=== PATIENT | male | born 1960 | race Caucasian/White ===

== ENCOUNTER 2017-02-18 13:21 | Observation (INO) | payer OTHER ==
--- NOTE | 2017-02-18 14:18 | PDOC ---
Attending Attestation - Resident Resident Name: Seble Marxica - ED Attending Attestation I have performed the following: I have examined & evaluated the patient, The case was reviewed & discussed with the resident, I agree w/resident's findings & plan, Exceptions are as noted - HPI HPI: 02/18/17 14:27 57y M no significant pmhx preseents with lighteadedness. The pt state that he was working and dong some heavy lifting when he just started efeling very week, lightheaded/dizzy, palpitations- denies any cp, sob, diaphoresis, n/v. The sypmtoms lasted for ~10 min and then recurred. The pt currently feels well and otherwise asymptmoatic. on exm pt appears well, in no distress with essentially normal exam initial ekg showd some ST depressions, ?minimally will r/o anemia, metaoblic derangement, on monitor will r/o acs repeat ekg is unchanged 02/18/17 16:27 labs reviewed and are neg pt asymptmatic case dw cardiology - requets observation for further risk stratgification in lgiht of ekg findings 02/18/17 19:54 [t was originally admitted for inpatient admission, howver will downgrade to observation at restquest of dr. Nielson. Requests admission under hospitalist service. - Physicial Exam PE: 02/18/17 19:55 see above - Medical Decision Making 02/18/17 19:55 see above Heart Score/ECG Review - ECG Impressions Comment:: 02/18/17 15:10 Twelve-lead EKG was performed and reviewed by me. ekg orerformed at 13:35 There is normal sinus rhythm with a 103 abnormal r wave progression subtle ST depressions in lateral leads (v4-v6 - vs poor baseine) subtle st elevations in V1, avr, no old ekg for comparison q wave in III st flattening in III ekg orerformed at 14:21 There is normal sinus rhythm with a 96 abnormal r wave progression std in lateral leads improved subtle st elevations in V1, avr
--- NOTE | 2017-02-18 14:22 | PDOC ---
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 Patient states he sat down and the symptoms resolved however after climbing stairs the symptoms returned. Patient denies any chest pain, shortness of breath, diaphoresis, nausea or vomiting. Patient denies any prior cardiac evaluation. Surgical: none NKDA Social: denies cigarettes, 1-2 alcoholic drinks weekly, denies recreational drugs PMD: Dr. Christopher <Yovana Marx - Last Filed: 02/18/17 17:55> - General Chief Complaint: Palpitations Stated Complaint: LIGHTHEADED, RAPID HEARTBEAT Time Seen by Provider: 02/18/17 13:56 Past History <Elmer Flores - Last Filed: 02/18/17 16:56> - Past Medical History Thyroid Disease: No - Suicide/Smoking/Psychosocial Hx Smoking History: Never smoked Have you smoked in the past 12 months: No Information on smoking cessation initiated: No Hx Alcohol Use: No Drug/Substance Use Hx: No Substance Use Type: None <Yovana Marx - Last Filed: 02/18/17 17:55> - Past Medical History Allergies/Adverse Reactions: Allergies Allergy/AdvReac Type Severity Reaction Status Date / Time red dye Allergy Intermediate Verified 02/18/17 13:53 Review of Systems - Review of Systems Constitutional: No: Chills, Fever Respiratory: No: Shortness of Breath Cardiac (ROS): Yes: Lightheadedness ABD/GI: No: Constipated, Diarrhea, Nausea, Vomiting All Other Systems: Reviewed and Negative <Yovana Marx - Last Filed: 02/18/17 17:55> *Physical Exam - Vital Signs Last Vital Signs Temp Pulse Resp BP Pulse Ox 98.2 F 92 H 18 155/95 98 02/18/17 16:14 02/18/17 16:14 02/18/17 16:14 02/18/17 16:14 02/18/17 16:14 <Elmer Flores - Last Filed: 02/18/17 16:56> - Vital Signs Last Vital Signs Temp Pulse Resp BP Pulse Ox 98.2 F 102 H 18 177/94 100 02/18/17 13:25 02/18/17 13:25 02/18/17 13:25 02/18/17 13:25 02/18/17 13:25 - Physical Exam General Appearance: Yes: Nourished, Obese HEENT: positive: TMs Normal. negative: TM Bulging, TM Erythema Respiratory/Chest: positive: Lungs Clear Cardiovascular: positive: S1, S2 Gastrointestinal/Abdominal: positive: Soft, Protuberent Integumentary: positive: Normal Color, Dry Neurologic: positive: senior net engineer II-XII NML intact, Fully Oriented, Alert <Yovana Marx - Last Filed: 02/18/17 17:55> ED Treatment Course - LABORATORY CBC & Chemistry Diagram: 02/18/17 14:23 02/18/17 14:23 - ADDITIONAL ORDERS Additional order review: Laboratory Results 02/18/17 14:23 Sodium 134 L Potassium 4.4 Chloride 100 Carbon Dioxide 25 Anion Gap 9 BUN 12 Creatinine 0.8 Creat Clearance w eGFR > 60 Random Glucose 156 H D Calcium 8.6 Magnesium 2.5 H Total Bilirubin 0.4 AST 63 H D ALT 95 H D Alkaline Phosphatase 74 Creatine Kinase 298 Creatine Kinase Index 0.8 CK-MB (CK-2) 2.539 Troponin I < 0.02 Total Protein 7.4 Albumin 3.9 02/18/17 14:23 RBC 5.04 MCV 89.8 MCHC 34.8 RDW 12.5 MPV 8.0 Neutrophils % 77.1 Lymphocytes % 12.6 D Monocytes % 8.5 Eosinophils % 0.4 Basophils % 1.4 - Medications Given in the ED: ED Medications Discontinued Medications Generic Name Dose Route Start Last Admin Trade Name Freq PRN Reason Stop Dose Admin Aspirin 324 mg 02/18/17 15:05 02/18/17 15:16 Asa - PO 02/18/17 15:06 324 mg ONCE ONE Administration <Elmer Flores - Last Filed: 02/18/17 16:56> - LABORATORY CBC & Chemistry Diagram: 02/18/17 14:23 02/18/17 14:23 - RADIOLOGY Radiology Studies Ordered: Category Date Time Status CHEST PA & LAT [RAD] Stat Radiology 02/18/17 14:07 Ordered <Yovana Marx - Last Filed: 02/18/17 17:55> Medical Decision Making - Medical Decision Making 02/18/17 14:39 Patient is a 57 y.o. male who presents with lightheadedness x2 following exertion. As lightheadedness might represent anginal equivalent initial DDx includes r/o ACS vs. Angina vs. Dehydration. PLAN: 1. Troponin/EKG/CK 2. CBC, CMP Mg 02/18/17 15:31 EKG shows NSR (HR 103) subtle ST depressions in lateral leads (V5,V6) and subtle ST elevations in V1, aVR, solo Q wave in Lead III; repeat EKG shows NSR @ 96 bpm, and continued ST elevations in V1, aVR Clinical suspicion for ACS is moderate, patient's Heart Score 1-2, however as lightheadedness on exertion may represent anginal equivalent, patient admitted for cardiac stress testing; Dr. George (cardiology, dairy consultant) to evaluate patient. 02/18/17 15:38 Troponin (-) x1, CK pending; patient's PCP, Dr. Washington (Dr. Nielson) contacted - will contact with CK-MB 02/18/17 15:[address] Nielson requests CT head w/o contrast as patient c/o of lightheadedness 02/18/17 17:[address] Nielson, confirmed patient was admitted as inpatient. <Yovana Marx - Last Filed: 02/18/17 17:55> *DC/Admit/Observation/Transfer - Discharge Dispostion Admit: Yes <Elmer Flores - Last Filed: 02/18/17 16:56> <Yovana Marx - Last Filed: 02/18/17 17:55> Diagnosis at time of Disposition: Lightheaded, EKG abnormalities - Referrals Referrals: Gisela Christopher MD [Primary Care Provider] -
[2017-02-18 14:32] LABS: BASOPHIL 1.4 % (0-2.0); EOSINOPHIL 0.4 % (0-4.5); MCH 31.3 pg (25.7-33.7); MCHC 34.8 g/dl (32.0-35.9); MEAN CELL VOLUME 89.8 fl (80-96); NEUTROPHILS 77.1 % (42.8-82.8); PLATELET COUNT 249 K/MM3 (134-434); RDW 12.5 % (11.9-15.9); WHITE BLOOD COUNT 12.4 K/mm3 (4.0-10.0)
[2017-02-18 14:58] LABS: ALBUMIN 3.9 g/dl (3.4-5.0); ALK PHOS 74 U/L (45-117); ANION GAP 9 (8-16); BILIRUBIN,TOTAL 0.4 mg/dL (0.2-1.0); CALCIUM 8.6 mg/dL (8.5-10.1); CO2 25 mmol/L (21-32); CREATININE 0.8 mg/dL (0.7-1.3); GLUCOSE,RANDOM 156 mg/dL (74-106); SGPT/ALT 95 U/L (12-78); TOT PROT 7.4 g/dl (6.4-8.2)
[2017-02-18 15:00] LABS: TROPONIN I < 0.02 ng/ml (0.00-0.05)
[2017-02-18 15:02] LABS: MAGNESIUM 2.5 mg/dL (1.8-2.4); SGOT/AST 63 U/L (15-37)
[2017-02-18] MEDS ORDERED: ASPIRIN 81 MG CHEWABLE TABLETS PO ONE (15:05)
[2017-02-18] MEDS ORDERED: ASPIRIN 81 MG CHEWABLE TABLETS ONE (15:11)
[2017-02-18 15:44] LABS: CPK 298 IU/L (39-308)
--- NOTE | 2017-02-18 17:41 | HP ---
Admitting History and Physical - Primary Care Physician PCP: Dr jason Washington(Dr Nielson) - Admission History of Present Illness: 57y M no significant pmhx preseents with lighteadedness. The pt state that he was working and dong some heavy lifting when he just started efeling very week, lightheaded/dizzy, palpitations- denies any cp, sob, diaphoresis, n/v. The sypmtoms lasted for ~10 min and then recurred. The pt currently feels well and otherwise asymptmoatic. - Smoking History Smoking history: Never smoked Have you smoked in the past 12 months: No - Alcohol/Substance Use Hx Alcohol Use: No Home Medications - Allergies Allergies/Adverse Reactions: Allergies Allergy/AdvReac Type Severity Reaction Status Date / Time red dye Allergy Intermediate Verified 02/18/17 13:53 Physical Examination Vital Signs: Vital Signs Temperature 98.2 F 02/18/17 16:14 Pulse Rate 92 H 02/18/17 16:14 Respiratory Rate 18 02/18/17 16:14 Blood Pressure 155/95 02/18/17 16:14 O2 Sat by Pulse Oximetry (%) 98 02/18/17 16:14 Labs: CBC, BMP 02/18/17 14:23 02/18/17 14:23
--- NOTE | 2017-02-18 18:53 | PDOC ---
ED Treatment Course - LABORATORY CBC & Chemistry Diagram: 02/18/17 14:23 02/18/17 14:23 - ADDITIONAL ORDERS Additional order review: Laboratory Results 02/18/17 14:23 Sodium 134 L Potassium 4.4 Chloride 100 Carbon Dioxide 25 Anion Gap 9 BUN 12 Creatinine 0.8 Creat Clearance w eGFR > 60 Random Glucose 156 H D Calcium 8.6 Magnesium 2.5 H Total Bilirubin 0.4 AST 63 H D ALT 95 H D Alkaline Phosphatase 74 Creatine Kinase 298 Creatine Kinase Index 0.8 CK-MB (CK-2) 2.539 Troponin I < 0.02 Total Protein 7.4 Albumin 3.9 02/18/17 14:23 RBC 5.04 MCV 89.8 MCHC 34.8 RDW 12.5 MPV 8.0 Neutrophils % 77.1 Lymphocytes % 12.6 D Monocytes % 8.5 Eosinophils % 0.4 Basophils % 1.4 - Medications Given in the ED: ED Medications Discontinued Medications Generic Name Dose Route Start Last Admin Trade Name Freq PRN Reason Stop Dose Admin Aspirin 324 mg 02/18/17 15:05 02/18/17 15:16 Asa - PO 02/18/17 15:06 324 mg ONCE ONE Administration Medical Decision Making - Medical Decision Making 02/18/17 20:08 Pt was originally admitted for inpatient admission, howver will downgrade to observation at [facility] of dr. Nielson. Requests admission under hospitalist service. *DC/Admit/Observation/Transfer Diagnosis at time of Disposition: Lightheaded, EKG abnormalities - Discharge Dispostion Condition at time of disposition: Stable Admit: Yes
--- NOTE | 2017-02-18 20:44 | PN ---
Teaching Attending Note Name of Resident: Patsy Perales ATTENDING PHYSICIAN STATEMENT I saw and evaluated the patient. I reviewed the resident's note and discussed the case with the resident. I agree with the resident's findings and plan as documented. SUBJECTIVE: 57 M with pmhx of MS who presents with decreased hearing, dizziness and lightheadedness. No chest pain, pressure or shortness of breath. States he was picking up air conditioners when this happened. He went to sit down, but when he got up again it happend. He denies any palpitations OBJECTIVE: Physical: VS: Vital Signs Period Temp Pulse Resp BP Sys/Valdez Pulse Ox Last 24 Hr 98.2 F-98.4 F 85-102 18-18 155-177/78-95 96-100 GEN: NAD, resting in bed HEENT: NCAT, PERRL, Throat without erythema or exudates CARD: RRR S1, S2 RESP: CTAB ABD: BSx4, ntd to palpation EXT: - C/C/E NEURO: CN II-XII intact CBCD WBC 12.4 K/mm3 (4.0-10.0) H D 02/18/17 14:23 RBC 5.04 M/mm3 (4.00-5.60) 02/18/17 14:23 Hgb 15.8 GM/dL (11.7-16.9) 02/18/17 14:23 Hct 45.2 % (35.4-49) 02/18/17 14:23 MCV 89.8 fl (80-96) 02/18/17 14:23 MCHC 34.8 g/dl (32.0-35.9) 02/18/17 14:23 RDW 12.5 % (11.9-15.9) 02/18/17 14:23 Plt Count 249 K/MM3 (134-434) 02/18/17 14:23 MPV 8.0 fl (7.5-11.1) 02/18/17 14:23 CMP Sodium 134 mmol/L (136-145) L 02/18/17 14:23 Potassium 4.4 mmol/L (3.5-5.1) 02/18/17 14:23 Chloride 100 mmol/L (98-107) 02/18/17 14:23 Carbon Dioxide 25 mmol/L (21-32) 02/18/17 14:23 Anion Gap 9 (8-16) 02/18/17 14:23 BUN 12 mg/dL (7-18) 02/18/17 14:23 Creatinine 0.8 mg/dL (0.7-1.3) 02/18/17 14:23 Creat Clearance w eGFR > 60 (>60) 02/18/17 14:23 Random Glucose 156 mg/dL (74-106) H D 02/18/17 14:23 Calcium 8.6 mg/dL (8.5-10.1) 02/18/17 14:23 Total Bilirubin 0.4 mg/dL (0.2-1.0) 02/18/17 14:23 AST 63 U/L (15-37) H D 02/18/17 14:23 ALT 95 U/L (12-78) H D 02/18/17 14:23 Alkaline Phosphatase 74 U/L (45-117) 02/18/17 14:23 Total Protein 7.4 g/dl (6.4-8.2) 02/18/17 14:23 Albumin 3.9 g/dl (3.4-5.0) 02/18/17 14:23 CARDIAC ENZYMES Creatine Kinase 298 IU/L (39-308) 02/18/17 14:23 Troponin I < 0.02 ng/ml (0.00-0.05) 02/18/17 14:23 EKG: NSR 96, Q waves septal leads CXR: No acute process CT HEAD- No acute intercranial hemmorage, mass effect, or midlien shift. Non- patchy hypoattenuation within cerebral white matter, may be related to demylinating disease such as MS. Focal encphalomalacia and gliosis in superior, posterior, left cerebellum which may be related to chronic infarction. Post-sx. changes in r. sinonasal cavity with chronic osteitits of the right maxillary sinus, which may represent mucosal thickening and post-sx. tissue ASSESSMENT AND PLAN: 57 M with pmhx of MS who presents with lightheadedness, dizziness and palpitations being admitted for Pre-Syncope 1.) Pre-Syncope/Decreased hearing - Decreased hearing now resolved, oupt. auditory eval - CT HEAD reviewed - MRI brain, can be done outpatient, to fu on MS lesions - Orthostatic VS - IVF gentle - TSH, FT4 - Trend EKG/Trop - Echo 2.) Transaminitis - Check Hepatitis panel - Trend/Fu outpt. 3.) Leukocytosis - Pt.s HR in Normal range - Check UA, If + Ucx - CXR- Negative 4.) Dvt Ppx - Low Risk - Ambulate/SCDs Place in Obs-Tele
--- NOTE | 2017-02-18 20:56 | HP ---
CHIEF COMPLAINT: "My heart was racing" PCP: Dr Christopher HISTORY OF PRESENT ILLNESS: This ia a 57yo previously healthy M with PMH of mild MS and HTn (not on meds), who presented due to new onset of lighteadedness, palpitations, heat flush and muffled sound in ears that occurred while bearing down/ lifting heavy object. Symptoms lasted <10 min and resolved spontaneously. This has never happened before. He denies consuming energy drinks, stimulants or drugs. He drink 2 cups of coffee/day. He denies cp, sob, cough, LE edema, weight change, heat/ cold intoolerance, n/v. Patient is asymptomatic in ED, afebrile and hemodnamically stable, however was found to have nonspecific ST changes on EKG. EKG: sinus 103 abnormal r wave progression subtle ST depressions in lateral leads v4-v6 subtle st elevations in V1, avr, q wave in III st flattening in III no old ekg for comparison ER course was notable for: (1)labs (2)cxr. ekg (3)asa Recent Travel: denies PAST MEDICAL HISTORY: mild ms PAST SURGICAL HISTORY: Social History: Smoking: smoked for 2 yrs, quit Alcohol: 4 beers/day Drugs: denies Family History: father and mother PR/CHF in the 60's. No thyroid disease Allergies red dye Allergy (Intermediate, Verified 02/18/17 13:53) red dye in cough medicine; numb lips, tingling, hives, urticaria. HOME MEDICATIONS: REVIEW OF SYSTEMS CONSTITUTIONAL: Absent: fever, chills, loss of appetite, weight change HEENT: Absent: rhinorrhea, nasal congestion, throat pain, throat swelling CARDIOVASCULAR: Absent: chest pain, syncope, irregular heart rate, lightheadedness, peripheral edema RESPIRATORY: Absent: cough, shortness of breath, dyspnea with exertion, orthopnea, wheezing, stridor, hemoptysis GASTROINTESTINAL: Absent: abdominal pain, abdominal distension, nausea, vomiting, diarrhea, constipation, melena, hematochezia GENITOURINARY: Absent: dysuria MUSCULOSKELETAL: Absent: back pain, neck pain SKIN: Absent: rash, itching, pallor HEMATOLOGIC/IMMUNOLOGIC: Absent: easy bleeding, easy bruising ENDOCRINE: Absent: unexplained weight gain, unexplained weight loss, heat intolerance, cold intolerance NEUROLOGIC: Absent: headache, focal weakness or paresthesias PSYCHIATRIC: Absent: anxiety, depression PHYSICAL EXAMINATION Vital Signs - 24 hr 02/18/17 20:17 Temperature 98.4 F Pulse Rate [ 85 Apical] Respiratory 18 Rate Blood Pressure 160/78 [Right Arm] O2 Sat by Pulse 96 Oximetry (%) GENERAL: Awake, alert, and fully oriented, in no acute distress. HEAD: Normal with no signs of trauma. EYES: Pupils equal, round and reactive to light, extraocular movements intact, sclera anicteric, conjunctiva clear. No lid lag. EARS, NOSE, THROAT: Moist mucous membranes. NECK: Normal range of motion, supple without JVD, or masses, full neck, hard to assess for thyromegaly but no lumps or adenopathy felt LUNGS: Breath sounds equal, clear to auscultation bilaterally, mild bibasilar crackles HEART: Regular rate and rhythm, normal S1 and S2 without murmur, rub or gallop. ABDOMEN: Soft, nontender, not distended, normoactive bowel sounds, no guarding, no rebound, no masses. MUSCULOSKELETAL: No CVA tenderness. UPPER EXTREMITIES: 2+ pulses, warm, well-perfused. No cyanosis. No clubbing. No peripheral edema. LOWER EXTREMITIES: 2+ pulses, warm, well-perfused. No calf tenderness. No peripheral edema. NEUROLOGICAL: Cranial nerves II-XII grossly intact. Normal speech. PSYCHIATRIC: Cooperative. Good eye contact. Appropriate mood and affect. SKIN: Warm, dry ASSESSMENT/PLAN: This ia a 57yo previously healthy M with PMH of mild MS and HTn (not on meds), who presented due to new onset of lighteadedness, palpitations, heat flush and muffled sound in ears that occurred while bearing down/ lifting heavy object. Presyncopal episode -likely vasovagal; check orthostaqtic vitals -IV hydration -TFT's -trop negative x1; trend one more -CXR clear -EKG abdormal, nospecific T changes in setting of strong family history of PR, CHF; tele monitoring -TTE -cardio consult -lipid panel -a1c HTN -not on meds -trend BP and treat as needed Mild transaminitis insetting of obesity -likely fatty liver vs EtOH abuse -consider outpatient evaluation with US, counseling on Etoh quitting, weight loss. MS -stable, not on meds -CT head appreciated FEN IV hydration lytes stable; mag goal 2, k goal 4 low NA diet early ambulation, diet Dispo: obs tele Problem List - Problem (1) EKG abnormalities Code(s): R94.31 - ABNORMAL ELECTROCARDIOGRAM [ECG] [EKG] (2) Lightheaded Code(s): R42 - DIZZINESS AND GIDDINESS (3) Pre-syncope Code(s): R55 - SYNCOPE AND COLLAPSE (4) HTN (hypertension) Code(s): I10 - ESSENTIAL (PRIMARY) HYPERTENSION (5) Multiple sclerosis Code(s): G35 - MULTIPLE SCLEROSIS Visit type - Emergency Visit Emergency Visit: Yes ED Registration Date: 02/18/17 Care time: The patient presented to the Emergency Department on the above date and was hospitalized for further evaluation of their emergent condition. - New Patient This patient is new to me today: Yes Date on this admission: 02/18/17 - Critical Care Critical Care patient: No
--- NOTE | 2017-02-18 22:27 | HP ---
CHIEF COMPLAINT: Lightheadedness and reduced hearing bilaterally PCP: Dr Nielson HISTORY OF PRESENT ILLNESS: A 57yr M with PMHx of mild MS,HTN, osteoarthritis not compliant on medications, presenting with lightheadedness after removing air -conditioners, as a diana in the heat. Patient felt hot, was sweating and suddenly noticed gradual reduction in hearing of both ears that lasted briefly. There was no dizziness, no LOC, no loss of vision, no aura or seizures, or weakness of any part of his body. No associated headaches or vomiting, no neck stiffness or fevers. There was no tinnitus. Patient never had a similar experience in the past. He was witnessed throughout the event and his colleague asked him to sit down after he poured water over himself. He was further encouraged to go to [employer] (here at [facility] from the [facility] location). His blood pressure was noted to be high and he was tachycardic and so referred to ED. No SOB, no cough. No dysuria, but admits polypdypsia. No diarrhea or constipation, no change in color of stool, no hematochezia. ER course was notable for: (1) EKG- sinus 103, abnormal r wave progression, subtle ST depressions in lateral leads v4-v6, subtle st elevations in V1, avr, q wave in III,st flattening in III no old ekg for comparison (2) CT scan- No acute intracranial hemorrhage, no mass effect, Nonspecific hypoattenuation related to MD, Focal encephalomalacia and gliosis superior and posterior L cerebellum, maybe related to chronic infarction, post surgical changes in R sinonasal cavity with chronic osteitis of R maxillary sinus which may represent some combination of mucosal thickenings and postsurgical tissue (3)Trops, CK MB-negative 4) WBC-12.4 5) CXR- No acute disease 6) AST-63, ALT-95 7) BP-155/95 Recent Travel: PAST MEDICAL HISTORY: MS HTN Osteoarthritis of knees PAST SURGICAL HISTORY: Social History: Smoking; Quit over 20 years ago Alcohol:3-4 beers a day Drugs: Denies Family History: Allergies red dye Allergy (Intermediate, Verified 02/18/17 13:53) red dye in cough medicine; numb lips, tingling, hives, urticaria. HOME MEDICATIONS: Home Medications Medication Instructions Recorded NK [No Known Home Medication] 02/18/17 REVIEW OF SYSTEMS CONSTITUTIONAL: Absent: fever, chills, diaphoresis, generalized weakness, malaise, loss of appetite, weight change HEENT: Absent: rhinorrhea, nasal congestion, throat pain, throat swelling, difficulty swallowing, mouth swelling, ear discomfort+, eye pain, visual changes CARDIOVASCULAR: Absent: chest pain, syncope, palpitations+, irregular heart rate, lightheadedness, peripheral edema RESPIRATORY: Absent: cough, shortness of breath, dyspnea with exertion, orthopnea, wheezing, stridor, hemoptysis GASTROINTESTINAL: Absent: abdominal pain, abdominal distension, nausea, vomiting, diarrhea, constipation, melena, hematochezia GENITOURINARY: Absent: dysuria, frequency, urgency, hesitancy, hematuria, flank pain, genital pain MUSCULOSKELETAL: Absent: myalgia, arthralgia, joint swelling, back pain, neck pain SKIN: Absent: rash, itching, pallor HEMATOLOGIC/IMMUNOLOGIC: Absent: easy bleeding, easy bruising, lymphadenopathy, frequent infections ENDOCRINE: Absent: unexplained weight gain, unexplained weight loss, heat intolerance, cold intolerance NEUROLOGIC: Absent: headache, focal weakness or paresthesias, dizziness, unsteady gait, seizure, mental status changes, bladder or bowel incontinence PSYCHIATRIC: Absent: anxiety, depression, suicidal or homicidal ideation, hallucinations. PHYSICAL EXAMINATION Vital Signs - 24 hr 02/18/17 20:17 Temperature 98.4 F Pulse Rate [ 85 Apical] Respiratory 18 Rate Blood Pressure 160/78 [Right Arm] O2 Sat by Pulse 96 Oximetry (%) GENERAL: Obese gentleman, Awake, alert, and fully oriented, in no acute distress. HEAD: Normal with no signs of trauma. No facial droop. EYES: Pupils equal, round and reactive to light, extraocular movements intact, sclera anicteric, conjunctiva clear. No lid lag. EARS, NOSE, THROAT: No obvious ear discharge, no tenderness of ears. Ears normal , oropharynx clear without exudates. Moist mucous membranes. NECK: No neck stiffness, Normal range of motion, without lymphadenopathy, JVD, or masses. Thyroid gland hard to palpate. LUNGS: Breath sounds equal, clear to auscultation bilaterally. No wheezes, and no crackles. No accessory muscle use. HEART: Tachycardic, S1 and S2 , ABDOMEN: Obese, firm, nontender, normoactive bowel sounds, no guarding, no rebound, no masses. No hepatomegaly or splenomegaly. MUSCULOSKELETAL: Normal range of motion at all joints. No bony deformities or tenderness. No CVA tenderness. UPPER EXTREMITIES: 2+ pulses, warm, well-perfused. No cyanosis. No clubbing. No peripheral edema. LOWER EXTREMITIES: 2+ pulses, warm, well-perfused. No calf tenderness. No peripheral edema. NEUROLOGICAL: Normal touch sensation, bilaterally, normal tone and reflexes globally. Babinski, downward. No tongue deviation. Normal speech. PSYCHIATRIC: Cooperative. Good eye contact. Appropriate mood and affect. ASSESSMENT/PLAN: 57yr obese M with PMHx of mild MS,HTN, osteoarthritis not on medications, presenting with lightheadedness and transient loss of hearing #Lightheadedness/presyncope Likely vasovagal, since it was hot and related to change in position Could also be cardiogenic since patient was previously diagnosed as hypertensive and has not been on medications, and found to be tachycardiac TFTs Echo CKG Cardiac consult-Smith Cardiac monitoring orthostatic vitals ASA monitor BP CMP, Mg, Ph Lipid panel, Hgb A1c Trend Trops #High blood pressure Monitor #Transaminitis Could be due to CORTEZ, R/o Alcoholic hepatitis, history of chronic alcohol ingestion Trend LFTs Hepatitis panel Follow up with GI as an outpatient #Obesity Lipid panel HgbA1c Counselling on diet and exercise Follow up, likely start statins #Ms Hx and findings on CT scan To follow up with neurologist as an outpatient #Prophylaxis SCDs Early ambulation Low risk no need for heparin at this time No need for GI prophylaxis at this time #FEN Oral fluids Monitor electrolytes Low salt diet #Osteoarthritis Stable Monitor #Dispo Telemetry Visit type - Emergency Visit Emergency Visit: Yes ED Registration Date: 02/18/17 Care time: The patient presented to the Emergency Department on the above date and was hospitalized for further evaluation of their emergent condition. - New Patient This patient is new to me today: Yes Date on this admission: 02/18/17 - Critical Care Critical Care patient: No
--- NOTE | 2017-02-18 23:13 | CON.CARD ---
Consult Consult Specialty:: cardiology Reason for Consultation:: EKG abnormality; CAD risks - History of Present Illness History of Present Illness: 57y white man with hx obesity, sedentary lifestyle, family hx CAD presents with lightheadedness. The pt states that he was working (at [employer] [employer]) and doing some heavy lifting when he started feeling very week, lightheaded/dizzy, with palpitations- denies any cp, sob, diaphoresis, n/v. The symptoms lasted for ~10 min and then recurred. The pt currently feels well and is otherwise asymptomatic. on exm pt appears well, in no distress with essentially normal exam initial ekg showed mild ST elevation V1, with ST depressions in lead I, V5-6 minimally will r/o anemia, metaoblic derangement, on monitor will r/o acs repeat ekg is unchanged - History Source History Provided By: Patient, Medical Record Limitations to Obtaining History: No Limitations - Past Medical History DIRECTOR PERIOPERATIVE: Yes: Vertigo. No: Syncope Cardio/Vascular: Yes: HTN (on no meds) Pulmonary: Yes: Sleep Apnea (rule out) - Alcohol/Substance Use Hx Alcohol Use: No - Smoking History Smoking history: Never smoked Have you smoked in the past 12 months: No Home Medications - Allergies Allergies/Adverse Reactions: Allergies Allergy/AdvReac Type Severity Reaction Status Date / Time red dye Allergy Intermediate Verified 02/18/17 13:53 - Home Medications Home Medications: Ambulatory Orders NK [No Known Home Medication] 02/18/17 Family Disease History - Family Disease History Family Disease History: Heart Disease: Father (VT in his ?60s; heavy cigar smoker) Review of Systems - Review of Systems Constitutional: reports: Other (lightheaded) Eyes: reports: No Symptoms HENT: reports: No Symptoms Neck: reports: No Symptoms Cardiovascular: reports: Palpitations Respiratory: reports: No Symptoms Gastrointestinal: reports: No Symptoms Genitourinary: reports: No Symptoms Breasts: reports: No Symptoms Reported Musculoskeletal: reports: No Symptoms Integumentary: reports: No Symptoms Neurological: reports: Other (lightheaded) Endocrine: reports: No Symptoms Hematology/Lymphatic: reports: No Symptoms Psychiatric: reports: No Symptoms - Risk Factors Known Risk Factors: Yes: Age, Family History, Gender, Hypercholesterolemia, Physical Inactivity, Other (hyperglycemia) Vital Signs: Vital Signs Temperature 98.4 F 02/18/17 20:17 Pulse Rate 85 02/18/17 20:17 Respiratory Rate 18 02/18/17 20:17 Blood Pressure 160/78 02/18/17 20:17 O2 Sat by Pulse Oximetry (%) 96 02/18/17 20:17 Constitutional: Yes: Anxious, Obese Eyes: Yes: WNL HENT: Yes: WNL Neck: Yes: WNL Respiratory: Yes: WNL Gastrointestinal: Yes: Soft, Abdomen, Obese Renal/: No: Anuria Cardiovascular: Yes: Regular Rate and Rhythm JVD: No Carotid Bruit: No PMI: Non-Displaced Heart Sounds: Yes: S1, S2, S4 Murmur: Yes: Systolic Murmur, Grade 1 Musculoskeletal: Yes: WNL Extremities: Yes: WNL Edema: No Peripheral Pulses WNL: Yes Integumentary: Yes: WNL Neurological: Yes: WNL Psychiatric: Yes: WNL - Other Data Echo: Pending Imaging - Results Chest X-ray: Image Reviewed (no acute pathology) EKG: Image Reviewed (mild ST upsloping V1; mild ST depression I, V5-6) Problem List - Problems (1) EKG abnormalities Assessment/Plan: F/u EKG serially. TNI 0.02; f/u serially. Multiple CAD risks (57 yr old male; obese; relatively sedentary; low HDL, elevated LDL cholesterol and markedly elevated triglycerides in 2014) F/u fasting lipids; caution with stain (elevated LFTS). Stress treadmill MIBI in am. Code(s): R94.31 - ABNORMAL ELECTROCARDIOGRAM [ECG] [EKG] (2) HTN (hypertension) Code(s): I10 - ESSENTIAL (PRIMARY) HYPERTENSION (3) Lightheaded Assessment/Plan: CT head: no acute pathology; ? area representing multiple sclerosis; ? old cerebellar infarct. F/u with neurology. Orthostatic vital signs. Avoid dehydration. Code(s): R42 - DIZZINESS AND GIDDINESS (4) Sleep apnea Assessment/Plan: obese; sleep studies Code(s): G47.30 - SLEEP APNEA, UNSPECIFIED (5) Hyperlipidemia Assessment/Plan: elevated LDL in 2014; f/u repeat levels; will likely benefit from a statin. Code(s): E78.5 - HYPERLIPIDEMIA, UNSPECIFIED (6) Hypertriglyceridemia Assessment/Plan: markedly elevated value (>600) in 2014. F/u repeat value. Weight loss, dietary modification, exercise, and fibrate well likely all be of benefit. Code(s): E78.1 - PURE HYPERGLYCERIDEMIA (7) Elevated LFTs Assessment/Plan: Pt drinks alcohol to excess, especially on weekends. w/u for etiology F/u with GI Code(s): R79.89 - OTHER SPECIFIED ABNORMAL FINDINGS OF BLOOD CHEMISTRY (8) Hyperglycemia Assessment/Plan: f/u fasting glucose; HGBA1C. Code(s): R73.9 - HYPERGLYCEMIA, UNSPECIFIED
[2017-02-19 00:30] LABS: CPK 188 IU/L (39-308); TROPONIN I < 0.02 ng/ml (0.00-0.05)
[2017-02-19 05:26] VITALS: BMI 34.7
[2017-02-19 06:52] LABS: BASOPHIL 0.9 % (0-2.0); MCHC 34.4 g/dl (32.0-35.9); MEAN CELL VOLUME 90.1 fl (80-96); MEAN PLT VOLUME 7.6 fl (7.5-11.1); NEUTROPHILS 53.7 % (42.8-82.8); PLATELET COUNT 202 K/MM3 (134-434); RDW 12.8 % (11.9-15.9); WHITE BLOOD COUNT 8.2 K/mm3 (4.0-10.0)
[2017-02-19 06:59] LABS: ALBUMIN 3.7 g/dl (3.4-5.0); ANION GAP 11 (8-16); BILIRUBIN,TOTAL 0.6 mg/dL (0.2-1.0); CALCIUM 8.6 mg/dL (8.5-10.1); CO2 26 mmol/L (21-32); CREATININE 0.8 mg/dL (0.7-1.3); GLUCOSE,RANDOM 109 mg/dL (74-106); MAGNESIUM 2.5 mg/dL (1.8-2.4); PHOSPHOROUS 3.8 mg/dL (2.5-4.9); SGOT/AST 29 U/L (15-37); SGPT/ALT 77 U/L (12-78); TOT PROT 6.8 g/dl (6.4-8.2)
[2017-02-19 07:00] LABS: ALK PHOS 66 U/L (45-117)
[2017-02-19 08:28] LABS: CHOLESTEROL 234 mg/dL (50-200); CPK 158 IU/L (39-308)
[2017-02-19 08:29] LABS: TROPONIN I < 0.02 ng/ml (0.00-0.05)
[2017-02-19 10:50] LABS: URINE APPEARANCE CLEAR; URINE BILIRUBIN NEGATIVE (NEGATIVE); URINE BLOOD NEGATIVE (NEGATIVE); URINE COLOR LTYELLOW; URINE GLUCOSE (UA) NEGATIVE (NEGATIVE); URINE KETONE NEGATIVE (NEGATIVE); URINE NITRITE NEGATIVE (NEGATIVE); URINE PROTEIN NEGATIVE (NEGATIVE); URINE UROBILINOGEN NEGATIVE mg/dL (0.2-1.0)
--- NOTE | 2017-02-19 11:42 | PN ---
Progress Note, Physician History of Present Illness: 57y white man with hx obesity, sedentary lifestyle, family hx CAD presents with lightheadedness. The pt states that he was working (at [employer]) and doing some heavy lifting when he started feeling very week, lightheaded/dizzy, with palpitations- denies any cp, sob, diaphoresis, n/v. The symptoms lasted for ~10 min and then recurred. The pt currently feels well and is otherwise asymptomatic. on exm pt appears well, in no distress with essentially normal exam initial ekg showed mild ST elevation V1, with ST depressions in lead I, V5-6 minimally will r/o anemia, metaoblic derangement, on monitor will r/o acs repeat ekg is unchanged - Current Medication List Current Medications: 57y white man with hx obesity, sedentary lifestyle, family hx CAD presents with lightheadedness. The pt states that he was working (at [employer]) and doing some heavy lifting when he started feeling very week, lightheaded/dizzy, with palpitations- denies any cp, sob, diaphoresis, n/v. The symptoms lasted for ~10 min and then recurred. The pt currently feels well and is otherwise asymptomatic. on exm pt appears well, in no distress with essentially normal exam initial ekg showed mild ST elevation V1, with ST depressions in lead I, V5-6 minimally will r/o anemia, metaoblic derangement, on monitor will r/o acs repeat ekg is unchanged - Objective Vital Signs: Vital Signs Temperature 97.6 F 02/19/17 08:00 Pulse Rate 60 02/19/17 08:00 Respiratory Rate 20 02/19/17 08:00 Blood Pressure 161/91 02/19/17 08:00 O2 Sat by Pulse Oximetry (%) 95 02/19/17 08:00 Eyes: Yes: WNL, Conjunctiva Clear, EOM Intact HENT: Yes: WNL, Atraumatic, Normocephalic Neck: Yes: WNL, Supple, Trachea Midline Cardiovascular: Yes: WNL, Regular Rate and Rhythm Respiratory: Yes: WNL, Regular, CTA Bilaterally Gastrointestinal: Yes: WNL, Normal Bowel Sounds Genitourinary: Yes: WNL Musculoskeletal: Yes: WNL Extremities: Yes: WNL Edema: No Integumentary: Yes: WNL Neurological: Yes: WNL, Alert, Oriented ...Motor Strength: WNL Psychiatric: Yes: WNL Labs: CBC, BMP 02/19/17 05:35 02/19/17 05:35 Assessment/Plan - Problems (1) EKG abnormalities Assessment/Plan: F/u EKG serially. TNI 0.02; f/u serially. Multiple CAD risks (57 yr old male; obese; relatively sedentary; low HDL, elevated LDL cholesterol and markedly elevated triglycerides in 2014) F/u fasting lipids; caution with stain (elevated LFTS). MIBI ST moderately sized moderate intensity IW ischemai would recommend c. cath for further evaluation Code(s): R94.31 - ABNORMAL ELECTROCARDIOGRAM [ECG] [EKG] (2) HTN (hypertension) Code(s): I10 - ESSENTIAL (PRIMARY) HYPERTENSION (3) Lightheaded Assessment/Plan: CT head: no acute pathology; ? area representing multiple sclerosis; ? old cerebellar infarct. F/u with neurology. Orthostatic vital signs. Avoid dehydration. Code(s): R42 - DIZZINESS AND GIDDINESS (4) Sleep apnea Assessment/Plan: obese; sleep studies Code(s): G47.30 - SLEEP APNEA, UNSPECIFIED (5) Hyperlipidemia Assessment/Plan: elevated LDL in 2015; f/u repeat levels; will likely benefit from a statin. Code(s): E78.5 - HYPERLIPIDEMIA, UNSPECIFIED (6) Hypertriglyceridemia Assessment/Plan: markedly elevated value (>600) in 2015. F/u repeat value. Weight loss, dietary modification, exercise, and fibrate well likely all be of benefit. Code(s): E78.1 - PURE HYPERGLYCERIDEMIA (7) Elevated LFTs Assessment/Plan: Pt drinks alcohol to excess, especially on weekends. w/u for etiology F/u with GI Code(s): R79.89 - OTHER SPECIFIED ABNORMAL FINDINGS OF BLOOD CHEMISTRY (8) Hyperglycemia Assessment/Plan: f/u fasting glucose; HGBA1C. Code(s): R73.9 - HYPERGLYCEMIA, UNSPECIFIED
--- NOTE | 2017-02-19 13:01 | EKG ---
Test Reason : Blood Pressure : / mmHG Vent. Rate : 096 BPM Atrial Rate : 096 BPM P-R Int : 134 ms QRS Dur : 090 ms QT Int : 344 ms P-R-T Axes : 050 014 054 degrees QTc Int : 434 ms NORMAL SINUS RHYTHM SEPTAL INFARCT , AGE UNDETERMINED ABNORMAL ECG WHEN COMPARED WITH ECG OF 07-FEB-2004 12:01, NO SIGNIFICANT CHANGE WAS FOUND Confirmed by MAK BETTENCOURT MD ([id number]) on 02/19/2017 1:00:53 PM Referred By: Confirmed By:MAK BETTENCOURT MD
--- NOTE | 2017-02-19 13:03 | EKG ---
Test Reason : Blood Pressure : / mmHG Vent. Rate : 103 BPM Atrial Rate : 103 BPM P-R Int : 130 ms QRS Dur : 092 ms QT Int : 338 ms P-R-T Axes : 069 017 034 degrees QTc Int : 442 ms SINUS TACHYCARDIA POSSIBLE LEFT ATRIAL ENLARGEMENT SEPTAL INFARCT , AGE UNDETERMINED ABNORMAL ECG WHEN COMPARED WITH ECG OF 07-FEB-2004 12:01, NO SIGNIFICANT CHANGE WAS FOUND Confirmed by MAK BETTENCOURT MD ([id number]) on 02/19/2017 1:03:19 PM Referred By: Confirmed By:MAK BETTENCOURT MD
--- NOTE | 2017-02-19 13:22 | EKG ---
Test Reason : Blood Pressure : / mmHG Vent. Rate : 063 BPM Atrial Rate : 063 BPM P-R Int : 126 ms QRS Dur : 094 ms QT Int : 440 ms P-R-T Axes : 050 006 012 degrees QTc Int : 450 ms NORMAL SINUS RHYTHM CANNOT RULE OUT ANTERIOR INFARCT (CITED ON OR BEFORE 18-FEB-2017) ABNORMAL ECG WHEN COMPARED WITH ECG OF 18-FEB-2017 14:21, VENT. RATE HAS DECREASED BY 33 BPM NONSPECIFIC T WAVE ABNORMALITY NOW EVIDENT IN INFERIOR LEADS Confirmed by SG BIGGS, MAK ([id number]) on 02/19/2017 1:22:21 PM Referred By: DOMO VALVERDE Confirmed By:MAK BETTENCOURT MD
--- NOTE | 2017-02-19 16:38 | PN ---
Progress Note (short form) - Note Progress Note: Subjective: The patient was seen and examined at the bedside, he has no complaints of dizziness, palpitations, chest pain at this time. Awaiting transfer for cardiac cath per cardiology Current Medications Generic Name Dose Route Start Last Admin Trade Name Rashi PRN Reason Stop Dose Admin Aspirin 81 mg 02/20/17 10:00 Asa - PO DAILY [facility] Heparin Sodium (Porcine) 5,000 unit 02/19/17 22:00 Heparin - SQ TID ALEXIA Objective: Vital Signs Period Temp Pulse Resp BP Sys/Valdez Pulse Ox Last 24 Hr 97.6 F-98.6 F 60-98 18-20 140-166/65-91 94-96 Physical Exam: General: NAD, A&Ox3 Lungs: CTA bilaterally Heart: RRR, S1S2 Abd: Soft, non-tender, non-distended. Normoactive bowel sounds Ext: Warm, well-perfused. 2+ DP/PT bilaterally Neuro: CN 2-12 intact CBCD WBC 8.2 K/mm3 (4.0-10.0) D 02/19/17 05:35 RBC 4.87 M/mm3 (4.00-5.60) 02/19/17 05:35 Hgb 15.1 GM/dL (11.7-16.9) 02/19/17 05:35 Hct 43.9 % (35.4-49) 02/19/17 05:35 MCV 90.1 fl (80-96) 02/19/17 05:35 MCHC 34.4 g/dl (32.0-35.9) 02/19/17 05:35 RDW 12.8 % (11.9-15.9) 02/19/17 05:35 Plt Count 202 K/MM3 (134-434) 02/19/17 05:35 MPV 7.6 fl (7.5-11.1) 02/19/17 05:35 CMP Sodium 139 mmol/L (136-145) 02/19/17 05:35 Potassium 4.5 mmol/L (3.5-5.1) 02/19/17 05:35 Chloride 102 mmol/L (98-107) 02/19/17 05:35 Carbon Dioxide 26 mmol/L (21-32) 02/19/17 05:35 Anion Gap 11 (8-16) 02/19/17 05:35 BUN 13 mg/dL (7-18) 02/19/17 05:35 Creatinine 0.8 mg/dL (0.7-1.3) 02/19/17 05:35 Creat Clearance w eGFR > 60 (>60) 02/19/17 05:35 Random Glucose 109 mg/dL (74-106) H D 02/19/17 05:35 Calcium 8.6 mg/dL (8.5-10.1) 02/19/17 05:35 Total Bilirubin 0.6 mg/dL (0.2-1.0) D 02/19/17 05:35 AST 29 U/L (15-37) D 02/19/17 05:35 ALT 77 U/L (12-78) 02/19/17 05:35 Alkaline Phosphatase 66 U/L (45-117) 02/19/17 05:35 Total Protein 6.8 g/dl (6.4-8.2) 02/19/17 05:35 Albumin 3.7 g/dl (3.4-5.0) 02/19/17 05:35 CARDIAC ENZYMES Creatine Kinase 158 IU/L (39-308) 02/19/17 05:35 Troponin I < 0.02 ng/ml (0.00-0.05) 02/19/17 05:35 Assessment: This is a 57 year old male with PMHx of MS, obsesity, who presented to the ED with dizziness and lightheadedness Plan: 1) Cardiology: Presyncope, lightheadedness - Trop x3 negative - Lipid panel reviewed, start Lipitor - ASA daily - Stress test: Moderately sized moderate intensity inferior wall reversible perfusion defect consistent with ischemia - ECHO: Normal LV size and function. Normal ejection fraction. Moderately dilated left atrium and right atrium. RVSP is normal. Regional wall motion abnormality cannot be excluded. RV, KV not well visualized. Mild to moderate TR - Will need to go for cardiac cath, f/u cards - Appreciate cardiology consult 2) Neuro: MS - Not on home medications 3) F/E/N: - Monitor electrolytes - Sodium controlled diet 4) Prophylaxis: - Heparin 5,000u sq tid - OOB ambulating 5) Dispo: - Likely transfer for cardiac cath tomorrow CODE STATUS: FULL CODE Visit type - Emergency Visit Emergency Visit: Yes ED Registration Date: 02/18/17 Care time: The patient presented to the Emergency Department on the above date and was hospitalized for further evaluation of their emergent condition. - New Patient This patient is new to me today: Yes Date on this admission: 02/20/17 - Critical Care Critical Care patient: No
[2017-02-19 16:54] LABS: URINE LEUK ESTERASE Negative (NEGATIVE)
[2017-02-19] MEDS ORDERED: MAGNESIUM HYDROX 2400MG/30ML ORAL SUSPENSION 30 ML CUP PO ONE (22:02)
[2017-02-19] MEDS: HEPARIN NA (PORCINE) 5,000 UNITS/ML 1ML VIAL SQ SCH (22:42)
[2017-02-19] MEDS: ATORVASTATIN CA 40 MG TABLET (FP) PO SCH (22:42)
[2017-02-20] MEDS: HEPARIN NA (PORCINE) 5,000 UNITS/ML 1ML VIAL SQ SCH ×2 (06:19→22:46)
--- NOTE | 2017-02-20 09:02 | PN ---
Progress Note (short form) - Note Progress Note: Subjective: The patient was seen and examined at the bedside, he has no complaints at this time. He is wondering when he will be transferred for a cardiac cath Current Medications Generic Name Dose Route Start Last Admin Trade Name Rashi PRN Reason Stop Dose Admin Aspirin 81 mg 02/20/17 10:00 Asa - PO DAILY ALEXIA Atorvastatin Calcium 40 mg 02/19/17 22:00 02/19/17 22:42 Lipitor - PO 40 mg HS ALEXIA Administration Heparin Sodium (Porcine) 5,000 unit 02/19/17 22:00 02/20/17 06:19 Heparin - SQ 5,000 unit TID ALEXIA Administration Objective: Vital Signs Period Temp Pulse Resp BP Sys/Valdez Pulse Ox Last 24 Hr 97.6 F-98.6 F 58-84 16-20 138-158/59-85 91-95 Physical Exam: General: NAD, A&Ox3 Lungs: CTA bilaterally Heart: RRR, S1S2 Abd: Soft, non-tender, non-distended. Normoactive bowel sounds Ext: Warm, well-perfused. 2+ DP/PT bilaterally Neuro: CN 2-12 intact CBCD WBC 8.2 K/mm3 (4.0-10.0) D 02/19/17 05:35 RBC 4.87 M/mm3 (4.00-5.60) 02/19/17 05:35 Hgb 15.1 GM/dL (11.7-16.9) 02/19/17 05:35 Hct 43.9 % (35.4-49) 02/19/17 05:35 MCV 90.1 fl (80-96) 02/19/17 05:35 MCHC 34.4 g/dl (32.0-35.9) 02/19/17 05:35 RDW 12.8 % (11.9-15.9) 02/19/17 05:35 Plt Count 202 K/MM3 (134-434) 02/19/17 05:35 MPV 7.6 fl (7.5-11.1) 02/19/17 05:35 CMP Sodium 139 mmol/L (136-145) 02/19/17 05:35 Potassium 4.5 mmol/L (3.5-5.1) 02/19/17 05:35 Chloride 102 mmol/L (98-107) 02/19/17 05:35 Carbon Dioxide 26 mmol/L (21-32) 02/19/17 05:35 Anion Gap 11 (8-16) 02/19/17 05:35 BUN 13 mg/dL (7-18) 02/19/17 05:35 Creatinine 0.8 mg/dL (0.7-1.3) 02/19/17 05:35 Creat Clearance w eGFR > 60 (>60) 02/19/17 05:35 Random Glucose 109 mg/dL (74-106) H D 02/19/17 05:35 Calcium 8.6 mg/dL (8.5-10.1) 02/19/17 05:35 Total Bilirubin 0.6 mg/dL (0.2-1.0) D 02/19/17 05:35 AST 29 U/L (15-37) D 02/19/17 05:35 ALT 77 U/L (12-78) 02/19/17 05:35 Alkaline Phosphatase 66 U/L (45-117) 02/19/17 05:35 Total Protein 6.8 g/dl (6.4-8.2) 02/19/17 05:35 Albumin 3.7 g/dl (3.4-5.0) 02/19/17 05:35 CARDIAC ENZYMES Creatine Kinase 158 IU/L (39-308) 02/19/17 05:35 Troponin I < 0.02 ng/ml (0.00-0.05) 02/19/17 05:35 Assessment: This is a 57 year old male with PMHx of MS, obsesity, who presented to the ED with dizziness and lightheadedness Plan: 1) Cardiology: lightheadedness - Trop x3 negative - Lipid panel reviewed, start Lipitor - ASA daily - Stress test: Moderately sized moderate intensity inferior wall reversible perfusion defect consistent with ischemia - ECHO: Normal LV size and function. Normal ejection fraction. Moderately dilated left atrium and right atrium. RVSP is normal. Regional wall motion abnormality cannot be excluded. RV, KV not well visualized. Mild to moderate TR - Will need to go for cardiac cath, f/u cards - Appreciate cardiology consult 2) Neuro: MS - Not on home medications 3) F/E/N: - Monitor electrolytes - Sodium controlled diet 4) Prophylaxis: - Heparin 5,000u sq tid - OOB ambulating 5) Dispo: - Awaiting cardiology evaluation today for possible transfer for cardiac cath CODE STATUS: FULL CODE Visit type - Emergency Visit Emergency Visit: Yes ED Registration Date: 02/18/17 Care time: The patient presented to the Emergency Department on the above date and was hospitalized for further evaluation of their emergent condition. - New Patient This patient is new to me today: No - Critical Care Critical Care patient: No
--- NOTE | 2017-02-20 09:17 | PN ---
Progress Note, Physician Chief Complaint: [facility]UOx3[facility] He is asymptomatic. History of Present Illness: 57y white man with hx obesity, sedentary lifestyle, family hx CAD presents with lightheadedness. The pt states that he was working (at [facility]) and doing some heavy lifting when he started feeling very week, lightheaded/dizzy, with palpitations- denies any cp, sob, diaphoresis, n/v. The symptoms lasted for ~10 min and then recurred. The pt currently feels well and is otherwise asymptomatic. on exm pt appears well, in no distress with essentially normal exam initial ekg showed mild ST elevation V1, with ST depressions in lead I, V5-6 minimally will r/o anemia, metaoblic derangement, on monitor will r/o acs repeat ekg is unchanged - Current Medication List Current Medications: Active Medications Aspirin (Asa -) 81 mg PO DAILY [facility] Atorvastatin Calcium (Lipitor -) 40 mg PO HS [facility] Last Admin: 02/19/17 22:42 Dose: 40 mg Heparin Sodium (Porcine) (Heparin -) 5,000 unit SQ TID [facility] Last Admin: 02/20/17 06:19 Dose: 5,000 unit - Objective Vital Signs: Vital Signs Temperature 97.6 F 02/20/17 06:00 Pulse Rate 58 L 02/20/17 06:00 Respiratory Rate 16 02/20/17 06:00 Blood Pressure 138/72 02/20/17 06:00 O2 Sat by Pulse Oximetry (%) 91 L 02/19/17 22:00 Constitutional: Yes: Anxious Eyes: Yes: WNL HENT: Yes: WNL Neck: Yes: WNL Cardiovascular: Yes: Regular Rate and Rhythm Respiratory: Yes: WNL Gastrointestinal: Yes: Soft, Abdomen, Obese ...Rectal Exam: Yes: Deferred Genitourinary: No: Anuria Musculoskeletal: Yes: WNL Extremities: Yes: WNL Edema: No Peripheral Pulses WNL: Yes Integumentary: Yes: WNL Neurological: Yes: WNL Psychiatric: Yes: WNL Labs: CBC, BMP 02/19/17 05:35 02/19/17 05:35 - ....Imaging Other: Image Reviewed (telemetry: NSR; no arrythmias) Problem List - Problems (1) EKG abnormalities Assessment/Plan: F/u EKG serially. TNI 0.02 x 2 Multiple CAD risks (57 yr old male; obese; relatively sedentary; low HDL, elevated LDL cholesterol and markedly elevated triglycerides (> 400; pt says it has been as high as 900). stess MIBI: moderate area of modrately intense IW ischmia. Pt for coronary angiogram today. Code(s): R94.31 - ABNORMAL ELECTROCARDIOGRAM [ECG] [EKG] (2) HTN (hypertension) Code(s): I10 - ESSENTIAL (PRIMARY) HYPERTENSION (3) Lightheaded Code(s): R42 - DIZZINESS AND GIDDINESS (4) Sleep apnea Code(s): G47.30 - SLEEP APNEA, UNSPECIFIED (5) Hyperlipidemia Code(s): E78.5 - HYPERLIPIDEMIA, UNSPECIFIED (6) Hypertriglyceridemia Code(s): E78.1 - PURE HYPERGLYCERIDEMIA (7) Elevated LFTs Code(s): R79.89 - OTHER SPECIFIED ABNORMAL FINDINGS OF BLOOD CHEMISTRY (8) Hyperglycemia Code(s): R73.9 - HYPERGLYCEMIA, UNSPECIFIED
[2017-02-20] MEDS: ASPIRIN 81 MG CHEWABLE TABLETS PO SCH (09:35)
--- NOTE | 2017-02-20 10:16 | DS ---
Physical Examination Vital Signs: Vital Signs Temperature 97.6 F 02/20/17 09:31 Pulse Rate 63 02/20/17 09:31 Respiratory Rate 17 02/20/17 09:31 Blood Pressure 143/66 02/20/17 09:31 O2 Sat by Pulse Oximetry (%) 91 L 02/19/17 22:00 Labs: CBC, BMP 02/19/17 05:35 02/19/17 05:35 Discharge Summary Reason For Visit: LIGHTHEADEDNESS,ABNORMAL ELECTROCARDIOGRAPHY Current Active Problems EKG abnormalities (Acute) Elevated LFTs (Acute) HTN (hypertension) (Acute) Hyperglycemia (Acute) Hyperlipidemia (Acute) Hypertriglyceridemia (Acute) Lightheaded (Acute) Multiple sclerosis (Acute) Pre-syncope (Acute) Sleep apnea (Acute) Condition: Stable - Instructions Diet, Activity, Other Instructions: You are being transferred to [facility] for a cardiac catheterization. Referrals: Gisela Christopher MD [Primary Care Provider] - Pio Klein MD [Staff Physician] - Disposition: TRANSFER ACUTE CARE/OTHER HOSP - Home Medications Comprehensive Discharge Medication List: Ambulatory Orders NK [No Known Home Medication] 02/18/17
[2017-02-20] MEDS: ATORVASTATIN CA 40 MG TABLET (FP) PO SCH (22:46)
[2017-02-21] MEDS: ASPIRIN 81 MG CHEWABLE TABLETS PO SCH (09:29)
[2017-02-21 12:03] VITALS: BP 153/79; PULSE 62; TEMP 98.1
--- NOTE | 2017-02-21 12:19 | HOSP ---
Physical Examination Vital Signs: Vital Signs Temperature 98.1 F 02/21/17 10:00 Pulse Rate 62 02/21/17 10:00 Respiratory Rate 18 02/21/17 10:00 Blood Pressure 153/79 02/21/17 10:00 O2 Sat by Pulse Oximetry (%) 95 02/21/17 08:00 Labs: CBC, BMP 02/19/17 05:35 02/19/17 05:35 Hospitalist Encounter Assessment: Patient was waiting for bed at [facility] since yesterday as he was MRSA +. Patient to be transferred today for cardiac cath.
[2017-02-21] MEDS: HEPARIN NA (PORCINE) 5,000 UNITS/ML 1ML VIAL SQ SCH (13:04)
== END 2017-02-21 14:18 | disposition short-term general hospital (02) ==
LOC: JER 13:21 → INTOOBSV 16:57 → JERBED 16:57 → J4S 22:15
PROVIDERS: ADMIT Internal Medicine; ATTEND Registered Nurse
DX: R94.31 Abnormal electrocardiogram [ECG] [EKG] (principal); R42 Dizziness and giddiness; I10 Essential (primary) hypertension; E66.9 Obesity, unspecified; Z68.34 Body mass index [BMI] 34.0-34.9, adult; Z91.041 Radiographic dye allergy status; G47.30 Sleep apnea, unspecified; E78.5 Hyperlipidemia, unspecified; E78.1 Pure hyperglyceridemia; R94.5 Abnormal results of liver function studies; D72.829 Elevated white blood cell count, unspecified; R73.9 Hyperglycemia, unspecified; R55 Syncope and collapse; G35 Multiple sclerosis; Z91.14 Patient's other noncompliance with medication regimen; M17.0 Bilateral primary osteoarthritis of knee
CPT/HCPCS: 36415; 70450-TC; 71020-TC; 78452-TC; 80053; 80061; 81003; 82550; 82553; 83036; 83721; 83735; 84100; 84439; 84443; 84484; 85025; 86704; 86706; 86708; 86803; 87081; 87340; 93005; 93010; 93017; 93306-TC; 99284-25; A9502; G0378; J1644

== ENCOUNTER 2021-10-17 09:55 | Emergency (ER) | payer OTHER ==
[2021-10-17 10:06] VITALS: BP 174/74; PULSE 71; TEMP 97.6; BMI 34.4
[2021-10-17] MEDS ORDERED: PSEUDOEPHEDRINE HCL 60 MG TABLET PO ONE (11:08)
[2021-10-17] MEDS ORDERED: PSEUDOEPHEDRINE HCL 60 MG TABLET ONE (11:21)
== END 2021-10-17 11:25 | disposition home or self-care (01) ==
LOC: JERFT 09:55
DX: B34.9 Viral infection, unspecified (principal)
CPT/HCPCS: 0241U-QW; 99283-25

== ENCOUNTER 2022-03-27 10:47 | Inpatient (IN) | payer OTHER ==
[2022-03-27] MEDS ORDERED: NITROGLYCERIN 2% OINTMENT - 1GM PACKET TD ONE ×2 (11:11→11:30)
[2022-03-27] MEDS ORDERED: ASPIRIN 325 MG ENTERIC COATED TABLET (FP) PO ONE (11:11)
[2022-03-27] MEDS ORDERED: NITROGLYCERIN 25MG/D5W 250ML 25 MG/250 ML ML IVPB ONE (11:24)
[2022-03-27] MEDS ORDERED: ASPIRIN 325 MG ENTERIC COATED TABLET (FP) ONE (11:24)
[2022-03-27 12:19] LABS: BASO % 0.7 % (0-2.0); EOS % 1.3 % (0-4.5); HEMATOCRIT 43.3 % (35.4-49); HEMOGLOBIN 14.7 GM/dL (11.7-16.9); LYMPH % 17.1 % (8-40); MCH 30.8 pg (25.7-33.7); MEAN CELL VOLUME 90.8 fl (80-96); MEAN PLT VOLUME 7.3 fl (7.5-11.1); MONO % 12.6 % (3.8-10.2); NEUT % 68.3 % (42.8-82.8); PLATELET COUNT 217 10^3/uL (134-434); RBC 4.77 M/mm3 (4.00-5.60); RDW 12.6 % (11.9-15.9); WHITE BLOOD COUNT 7.4 K/mm3 (4.0-10.0)
[2022-03-27 12:31] LABS: INR 1.08 (0.83-1.09); PROTHROMBIN TIME (PATIENT) 12.4 SEC (9.7-13.0)
[2022-03-27 12:42] LABS: CALCIUM 8.9 mg/dL (8.5-10.1)
[2022-03-27 12:46] LABS: CREATININE 0.7 mg/dL (0.55-1.3)
[2022-03-27 12:48] LABS: BILIRUBIN,TOTAL 0.7 mg/dL (0.2-1)
[2022-03-27] MEDS ORDERED: PANTOPRAZOLE 40 MG TABLET PO ONE (15:18)
[2022-03-27] MEDS ORDERED: THIAMINE HCL 100 MG TABLET (FP) ONE (15:18)
[2022-03-27] MEDS ORDERED: ATORVASTATIN CA 40 MG TABLET (FP) ONE (15:19)
[2022-03-27] MEDS ORDERED: LOSARTAN POTASSIUM 50 MG TABLET ONE (15:19)
[2022-03-27] MEDS: LOSARTAN POTASSIUM 50 MG TABLET PO SCH (15:43)
[2022-03-27 16:54] VITALS: BMI 32.7
[2022-03-27] MEDS: THIAMINE HCL 100 MG TABLET (FP) PO SCH (21:15)
[2022-03-27] MEDS: ATORVASTATIN CA 40 MG TABLET (FP) PO SCH (21:15)
[2022-03-27] MEDS: PANTOPRAZOLE 40 MG TABLET PO SCH ×2 (21:15→21:43)
[2022-03-28 08:26] LABS: EOS % 2.4 % (0-4.5); HEMATOCRIT 44.1 % (35.4-49); HEMOGLOBIN 14.9 GM/dL (11.7-16.9); LYMPH % 20.9 % (8-40); MCH 31.1 pg (25.7-33.7); MCHC 33.8 g/dl (32.0-35.9); MEAN CELL VOLUME 92.1 fl (80-96); MEAN PLT VOLUME 7.7 fl (7.5-11.1); MONO % 12.4 % (3.8-10.2); NEUT % 63.3 % (42.8-82.8); PLATELET COUNT 199 10^3/uL (134-434); RBC 4.79 M/mm3 (4.00-5.60); RDW 12.9 % (11.9-15.9); WHITE BLOOD COUNT 6.7 K/mm3 (4.0-10.0)
[2022-03-28 08:52] LABS: BLOOD UREA NITROGEN 13.4 mg/dL (7-18)
[2022-03-28 08:53] LABS: CHOLESTEROL 146 mg/dL (50-200)
[2022-03-28 08:54] LABS: CREATININE 0.8 mg/dL (0.55-1.3); LDL CHOLESTEROL (ONLY SJRH) 58 mg/dL (5-100); TRIGLYCERIDES 324 mg/dL (0-150)
[2022-03-28 08:57] LABS: HDL CHOLESTEROL 47 mg/dL (40-60)
[2022-03-28] MEDS: THIAMINE HCL 100 MG TABLET (FP) PO SCH (13:05)
[2022-03-28] MEDS: PANTOPRAZOLE 40 MG TABLET PO SCH ×2 (13:05→21:51)
[2022-03-28] MEDS: LOSARTAN POTASSIUM 50 MG TABLET PO SCH (13:05)
[2022-03-28] MEDS: ASPIRIN COATED 81 MG TABLET.EC PO SCH (13:05)
[2022-03-28] MEDS: ATORVASTATIN CA 40 MG TABLET (FP) PO SCH (13:05)
[2022-03-28] MEDS ORDERED: ZOLPIDEM TARTRATE 5 MG TABLET PO ONE (22:30)
[2022-03-29] MEDS: PANTOPRAZOLE 40 MG TABLET PO SCH ×2 (09:50→21:29)
[2022-03-29] MEDS: ATORVASTATIN CA 40 MG TABLET (FP) PO SCH (09:51)
[2022-03-29] MEDS: LOSARTAN POTASSIUM 50 MG TABLET PO SCH (09:51)
[2022-03-29] MEDS: THIAMINE HCL 100 MG TABLET (FP) PO SCH (09:51)
[2022-03-29] MEDS: ASPIRIN COATED 81 MG TABLET.EC PO SCH (09:51)
[2022-03-29 13:31] VITALS: RESP 18
[2022-03-29] MEDS ORDERED: ZOLPIDEM TARTRATE 5 MG TABLET PO SCH (22:00)
[2022-03-30 07:27] VITALS: TEMP 97.9
[2022-03-30] MEDS: ASPIRIN COATED 81 MG TABLET.EC PO SCH (10:02)
[2022-03-30] MEDS: THIAMINE HCL 100 MG TABLET (FP) PO SCH (10:02)
[2022-03-30] MEDS: PANTOPRAZOLE 40 MG TABLET PO SCH (10:02)
[2022-03-30] MEDS: ATORVASTATIN CA 40 MG TABLET (FP) PO SCH (10:02)
[2022-03-30] MEDS: LOSARTAN POTASSIUM 50 MG TABLET PO SCH (10:02)
[2022-03-30 14:53] VITALS: BP 160/69; PULSE 73
== END 2022-03-30 13:35 | disposition home or self-care (01) | DRG 311 ==
LOC: JER 10:47 → JERBED 13:33 → J4W 16:38
PROVIDERS: ADMIT Internal Medicine; ATTEND Internal Medicine
DX: I24.9 Acute ischemic heart disease, unspecified (principal); I25.10 Atherosclerotic heart disease of native coronary artery without angina pectoris; I10 Essential (primary) hypertension; E78.5 Hyperlipidemia, unspecified; I25.2 Old myocardial infarction; E66.9 Obesity, unspecified; Z68.32 Body mass index [BMI] 32.0-32.9, adult; E78.1 Pure hyperglyceridemia; R94.31 Abnormal electrocardiogram [ECG] [EKG]; R00.1 Bradycardia, unspecified
CPT/HCPCS: 36415; 70450-TC; 71045-TC-FY; 78452-TC; 80048; 80053; 80061; 83036; 84484; 85025; 85610; 93005; 93010; 93017; 93306-TC; 93880-TC; 99285-25; A9502; C9803-CS; U0003; U0005

== ENCOUNTER 2022-07-10 13:42 | Emergency (ER) | payer OTHER ==
[2022-07-10 13:59] VITALS: BP 135/63; PULSE 72; RESP 16; TEMP 97.3; BMI 33.0
== END 2022-07-10 16:37 | disposition home or self-care (01) ==
LOC: JER 13:42
DX: S00.83XA Contusion of other part of head, initial encounter (principal); W18.2XXA Fall in (into) shower or empty bathtub, initial encounter
CPT/HCPCS: 70450-TC; 70486-TC; 99284-25

== ENCOUNTER 2023-05-09 09:32 | Emergency (ER) | payer OTHER ==
[2023-05-09 09:42] VITALS: BMI 30.8
[2023-05-09 11:21] LABS: BASO % 0.8 % (0-2.0); EOS % 1.1 % (0-4.5); HEMATOCRIT 43.1 % (35.4-49); HEMOGLOBIN 14.5 GM/dL (11.7-16.9); LYMPH % 18.2 % (8-40); MCH 31.2 pg (25.7-33.7); MCHC 33.7 g/dl (32.0-35.9); MEAN CELL VOLUME 92.5 fl (80-96); MEAN PLT VOLUME 7.2 fl (7.5-11.1); NEUT % 68.9 % (42.8-82.8); PLATELET COUNT 268 10^3/uL (134-434); RBC 4.66 M/mm3 (4.00-5.60); RDW 13.1 % (11.9-15.9); WHITE BLOOD COUNT 6.6 K/mm3 (4.0-10.0)
[2023-05-09 11:32] LABS: INR 1.05 (0.83-1.09); PROTHROMBIN TIME (PATIENT) 12.2 SEC (9.7-13.0)
[2023-05-09 11:35] LABS: ACTIVATED PTT 31.4 SECONDS (25.2-36.5)
[2023-05-09 11:40] LABS: POTASSIUM 4.4 mmol/L (3.5-5.1)
[2023-05-09 11:42] LABS: ALBUMIN 4.1 g/dl (3.4-5.0); CALCIUM 9.7 mg/dL (8.5-10.1)
[2023-05-09 11:43] LABS: BLOOD UREA NITROGEN 12.3 mg/dL (7-18)
[2023-05-09 11:46] LABS: CREATININE 0.8 mg/dL (0.55-1.3)
[2023-05-09 11:47] LABS: BILIRUBIN,TOTAL 0.5 mg/dL (0.2-1); TOT PROT 7.8 g/dl (6.4-8.2)
[2023-05-09 13:34] VITALS: BP 163/66; PULSE 63; RESP 18; TEMP 97.6
== END 2023-05-09 13:35 | disposition home or self-care (01) ==
LOC: JER 09:32
DX: R42 Dizziness and giddiness (principal); R26.89 Other abnormalities of gait and mobility; R61 Generalized hyperhidrosis; Z20.822 Contact with and (suspected) exposure to COVID-19
CPT/HCPCS: 0241U-QW; 36415; 71046-TC-FY; 80053; 82962; 84484; 85025; 85610; 85730; 93005; 93010; 99285-25